=== PATIENT | female | born 1975 | race African-American/Black ===

== ENCOUNTER → 2017-01-18 | Outpatient (CLI) | payer BC | LOC: RAD 07:49 | DX: E66.01 Morbid (severe) obesity due to excess calories (principal); Z98.84 Bariatric surgery status ==

== ENCOUNTER → 2017-07-05 | Outpatient (CLI) | payer BC ==
[~2017-07-05] MED LIST: HYDROCHLOROTHIA25 M2 PO; HYDROCODONE-AP1 EAC6 PO; ONDANSETRON HCL4 M2 PO
== END ==
LOC: ULTRA 10:01
DX: R10.13 Epigastric pain (principal); Z98.84 Bariatric surgery status

== ENCOUNTER 2017-07-07 12:27 | Emergency (ER) | payer BC ==
[~2017-07-07] VITALS: Ht 152.4 cm; Wt 83.9 kg
[2017-07-07 13:06] LABS: HEMATOCRIT 36.8 % (37.0-47.0); HEMOGLOBIN 12.2 gm/dL (12.0-15.0); MCH 28.6 pg (26.0-34.0); MCV 86.7 fL (80.0-100.0); PLATELET COUNT 334 thou/uL (150-400); RBC 4.24 mil/uL (4.20-5.00); RDW 14.5 % (10.5-14.5); WBC 3.7 thou/uL (4.0-11.0)
[2017-07-07 13:17] LABS: CALCIUM 8.8 mg/dL (8.5-10.1); POTASSIUM 4.1 mmol/L (3.5-5.1)
[2017-07-07 13:22] LABS: ALBUMIN 3.7 g/dL (3.4-5.0); TOTAL BILIRUBIN 0.6 mg/dL (<0.1-1.0); TOTAL PROTEIN 7.8 g/dL (6.4-8.2)
[2017-07-07 13:34] LABS: ABSOLUTE NEUTROPHILS 1.4 thou/uL (1.4-8.2)
[2017-07-07] MEDS ORDERED: ONDANSETRON HCL4 M2 PO (14:26)
[2017-07-07] MEDS ORDERED: HYDROCODONE-AP1 EAC6 PO (14:26)
[2017-07-07 15:19] VITALS: BP 105/76
[2017-07-21] MEDS ORDERED: HYDROCHLOROTHIA25 M2 PO (17:30)
[2017-07-22] MEDS ORDERED: HYDROCODONE-AP1 EAC6 PO (12:34)
== END 2017-07-07 15:20 | disposition home or self-care (01) ==
LOC: ER 12:27
PROVIDERS: Physician Assistant
DX: R10.11 Right upper quadrant pain (principal); R11.2 Nausea with vomiting, unspecified

== ENCOUNTER → 2017-07-08 | Outpatient (CLI) | payer BC, OTHER | LOC: NUC 11:07 | DX: R10.9 Unspecified abdominal pain (principal) ==

== ENCOUNTER 2017-07-21 11:27 | Observation (INO) | payer BC, OTHER ==
[~2017-07-21] VITALS: Ht 152.4 cm; Wt 87.5 kg
--- NOTE | ~2017-07-21 | S ---
[facility] [place] [address] SURGICAL PATH RPT PROCEDURE Name: ASHLYN LEWIS Room #: 432-P [facility] Tiara Hernandez#: [id number] Admission: 07/21/17 Date of : 77 Discharge: 07/22/17 Report #: [id number] Path Case #: [id number] PATHOLOGY REPORT COLLECTION DATE: 07/22/2017 RECEIVED DATE: 07/22/2017 SUBMITTING PHYS: Dr. Gurvinder Arana OTHER PHYS: Dr. Dana Rose SPECIMEN(S) RECEIVED: A.Gallbladder * * * * * * * * * * * * FINAL DIAGNOSIS: Gallbladder, cholecystectomy: - Mild chronic cholecystitis. (IUV:mgr; 07/23/2017) PATHOLOGIST: Sofia Salmeron M.D. REPORT ELECTRONICALLY SIGNED BY: Sofia Salmeron M.D. DATE/TIME: 07/23/2017 15:06 * * * * * * * * * * * * GROSS PATHOLOGY: Received in formalin labeled "Ashlyn Lewis gallbladder," is a 6.5 x 2.6 x 0.4 cm, previously opened gallbladder with yellow-green serosal surfaces. Opening the gallbladder reveals green-brown velvety mucosa and an average wall thickness of 0.1 cm. Calculi are not present (the container is also searched and no calculi are present within the container) and no masses are noted grossly. Sub Plant Manager sections from the body and fundus are submitted along with the proximal margin in cassette A1. ([facility]; 07/22/2017) CLINICAL HISTORY: Biliary colic. INITIAL CPT CODE(S): A; 70211 Professional services performed by [facility] at [facility] [address], [place] [address] Technical services performed by [facility] at [address] [place] [id number]. [facility] [address] [place] [address] SURGICAL PATH RPT PROCEDURE Name: DEBBIEFAWNJoceline Sandeep Room #: 432-P DANDRE Hernandez#: [id number] Admission: 07/21/17 Date of : 77 Discharge: 07/22/17 Report #: [id number] Path Case #: [id number] [facility] [address] [address] PHONE: [phone] DIRECTOR: Edgar Bacon M.D. * * * END OF REPORT * * *
--- NOTE | ~2017-07-21 | O ---
[facility] [place] [address] OPERATIVE REPORT Name: JULIA LEWIS [id number] Admission: 07/21/17 Attend Phys: Gurvinder Arana MD, F Discharge: 07/22/17 Date of : 77 Report #: [id number] THIS REPORT FOR: //name// CC: Dana Arana DATE OF SERVICE: 07/22/2017 SURGEON: Gurvinder Arana MD KILN FIREMAN: Eendelia Summers NP PREOPERATIVE DIAGNOSES: 1. Biliary colic. 2. Obesity. 3. History of laparoscopic Dewayne-en-Y gastric bypass and repair of internal hernia. POSTOPERATIVE DIAGNOSES: 1. Biliary colic. 2. Obesity. 3. History of laparoscopic Dewayne-en-Y gastric bypass and repair of internal hernia. PROCEDURE: Laparoscopic cholecystectomy with intraoperative cholangiogram. ANESTHESIA: General endotracheal anesthesia and local anesthetic. ESTIMATED BLOOD LOSS: 5 mL. SPECIMEN: Gallbladder. COMPLICATIONS: None appreciated. INDICATIONS FOR PROCEDURE: This is a 41-year-old female patient known to me from a previous internal hernia repair. She has a history of Dewayne-en-Y gastric bypass in 2010. She has had difficulty with postprandial epigastric abdominal pain and was worked up with CT of the abdomen and pelvis, which showed no acute findings. She then underwent an upper endoscopy procedure, which was also essentially normal. PIPIDA scan revealed 95% ejection fraction; however, the patient had significant and exact reproduction of her symptoms with administration of the cholecystokinin. The patient presents now for laparoscopic cholecystectomy with cholangiogram. OPERATIVE FINDINGS: Upon entrance into the abdominal cavity, the patient's liver, gastric remnant, small bowel and colon in the surrounding area appeared [facility] [address] [place] [address] OPERATIVE REPORT Name: JULIA LEWIS Room #: 432-P [facility] Tiara AlexandraAlexandra#: [id number] Admission: 07/21/17 Attend Phys: Gurvinder Arana MD, F Discharge: 07/22/17 Date of : 77 Report #: [id number] otherwise normal. The gallbladder itself appeared to be chronically inflamed without an acute inflammatory process. The critical view consisting of cystic artery, cystic duct and lower edge of the gallbladder forming a window through which the liver was visible was seen prior to clipping the cystic duct for cholangiogram. The cholangiogram was normal without filling defects. Contrast flowed freely into the duodenal sweep. The biliary radicles and common bile duct diameter appeared normal. After removal of the gallbladder from the abdominal cavity, 3 clips remained on the cystic duct stump. The gallbladder was opened on the back table. No gallstones were seen within the gallbladder. At the conclusion of the operation, sponge, needle and instrument counts were correct. No other significant intra-abdominal pathology was seen and there was no evidence for iatrogenic injury. DESCRIPTION OF PROCEDURE IN DETAIL: After the risks, benefits and expectations of the operation were discussed in detail with the patient, informed consent was obtained. The patient was identified in the preoperative holding area. She was given IV antibiotics as documented in the chart in line with SCIP metrics. The patient was then taken to the operating room and she was placed in the supine position. SCDs were placed on the patient's bilateral lower extremities and pneumatic compression was initiated. The patient was then given IV sedation and she was intubated without incident. A time-out was performed to identify the correct patient, procedure after prepping and draping the patient's abdomen in the standard sterile fashion. Local anesthetic was infiltrated into the skin and subcutaneous tissue in the right subcostal area where a small transverse incision was made. A 5 mm Visiport was placed intraperitoneally with a 0-degree angled laparoscope. Pneumoperitoneum was achieved with insufflation of carbon dioxide to 15 mmHg. A 30-degree angled laparoscope was then inserted. A supraumbilical 10 mm port was then placed under direct visualization after local anesthetic was infiltrated into the skin and subcutaneous tissue and an appropriately sized incision was made. After placement of the port, a 10 mm 30-degree angled laparoscope was inserted. The patient was placed in reverse Trendelenburg position and rotated to her left. A subxiphoid 5-mm and right lateral subcostal 5 mm port were each placed under direct visualization after local anesthetic was infiltrated into the skin and subcutaneous tissue and appropriately sized incisions were made. Operative findings are as noted above. The dome of the gallbladder was retracted in a cephalad direction. The gallbladder peritoneum was then scored medially and laterally with the ultrasonic dissector. Dissection was then carried out around the cystic artery and cystic duct to identify both structures as the only two structures entering the gallbladder. A clip was placed on the cystic duct at its junction with the neck of the gallbladder. A ductotomy was created. A cholangiocatheter was inserted and cholangiogram performed with findings as noted above. The cholangiocatheter was then removed and the cystic duct was triply clipped distal [facility] [address] [place] [address] OPERATIVE REPORT Name: JULIA LEWIS Room #: 432-P [facility]#: [id number] Admission: 07/21/17 Attend Phys: Gurvinder Arana MD, F Discharge: 07/22/17 Date of : 77 Report #: [id number] to the ductotomy. The duct was divided with the ultrasonic dissector with a good seal at the ductotomy site. The cystic artery was divided with the ultrasonic dissector with good hemostasis as well. The gallbladder was then dissected out of the liver bed without entrance into the gallbladder or liver bed. The gallbladder was detached from the liver bed, placed in an Endobag, and removed from the periumbilical port site. An 0 PDS suture was then placed with the Nathan-Kiesha laparoscopic fascial closure device. The suture was tagged and the port was replaced. The abdominal cavity was then reentered and the liver bed was examined for hemostasis. No other significant intra-abdominal pathology was seen. The 10 mm port was removed and the suture was tied under direct visualization to ensure no incorporation of intra-abdominal content. The abdominal cavity was then desufflated and the ports were removed. Interrupted subcuticular 4-0 Monocryl sutures and Dermabond was used to close the skin incisions. The patient tolerated the procedure well. She was awakened, extubated, and taken to recovery room in stable condition with no apparent intraoperative complications. <ELECTRONICALLY SIGNED> By: Gurvinder Arana MD, FACS 07/26/17 103 [id number] 10 Gurvinder Arana MD, FACS /nt
[~2017-07-21 11:27] MED LIST changes: -HYDROCHLOROTHIA25 M2 PO
[2017-07-21 11:38] VITALS: BP 135/89
[2017-07-21 12:15] LABS: ABSOLUTE NEUTROPHILS 3.6 thou/uL (1.4-8.2); BASOPHILS 0.8 % (0.0-2.0); EOSINOPHILS 1.7 % (0.0-3.0); HEMATOCRIT 37.2 % (37.0-47.0); HEMOGLOBIN 12.4 gm/dL (12.0-15.0); LYMPHOCYTES 35.1 % (24.0-44.0); MCH 29.1 pg (26.0-34.0); MCHC 33.4 g/dL (28.0-37.0); MCV 87.2 fL (80.0-100.0); MONOCYTES 10.2 % (1.0-8.0); PLATELET COUNT 218 thou/uL (150-400); POLYS 52.2 % (36.0-66.0); RBC 4.27 mil/uL (4.20-5.00); WBC 6.9 thou/uL (4.0-11.0)
[2017-07-21 12:16] LABS: URINE BILIRUBIN NEGATIVE (Negative); URINE BLOOD NEGATIVE (Negative); URINE CLARITY CLEAR; URINE COLOR YELLOW; URINE GLUCOSE-RANDOM* NEGATIVE (Negative); URINE KETONES NEGATIVE (Negative); URINE LEUKOCYTES NEGATIVE (Negative); URINE NITRITE NEGATIVE (Negative); URINE PROTEIN (DIPSTICK) NEGATIVE (Negative); URINE UROBILINOGEN 0.2 E.U./dl (0.2-1.0)
[2017-07-21 12:21] LABS: ANION GAP 8 mmol/L (7-16); BUN 12 mg/dL (7-18); CALCIUM 8.9 mg/dL (8.5-10.1); CHLORIDE 103 mmol/L (98-107); CO2 27 mmol/L (21-32); CREATININE 0.9 mg/dL (0.6-1.0); GLUCOSE 116 mg/dL (74-106); POTASSIUM 3.4 mmol/L (3.5-5.1); SODIUM 138 mmol/L (136-145)
[2017-07-21 12:27] LABS: ALBUMIN 3.7 g/dL (3.4-5.0); DIRECT BILIRUBIN < 0.1 mg/dL (<0.1-0.3); LIPASE 135 U/L (73-393); SGOT 20 U/L (15-37); SGPT 33 U/L (30-65); TOTAL BILIRUBIN 0.5 mg/dL (<0.1-1.0); TOTAL PROTEIN 7.7 g/dL (6.4-8.2)
[2017-07-21 13:52] VITALS: BP 130/92
[2017-07-21 14:43] VITALS: BP 131/92
[2017-07-21] MEDS ORDERED: HYDROCHLOROTHIA25 M2 PO ×2 (17:30)
[2017-07-21 20:00] VITALS: BP 118/78
[2017-07-22 04:05] VITALS: BP 117/78
[2017-07-22 07:04] LABS: CALCIUM 8.9 mg/dL (8.5-10.1); CREATININE 0.9 mg/dL (0.6-1.0); MAGNESIUM 1.9 mg/dL (1.8-2.4); POTASSIUM 3.9 mmol/L (3.5-5.1)
[2017-07-22 09:18] VITALS: BP 102/65
[2017-07-22] MEDS ORDERED: HYDROCODONE-AP1 EAC6 PO ×2 (12:34)
[2017-07-22 13:02] VITALS: BP 102/65
== END 2017-07-22 14:45 | disposition home or self-care (01) ==
LOC: ER 11:27 → EROBS 13:35 → 4E 14:40
PROVIDERS: Emergency Medicine; Surgery
DX: K81.1 Chronic cholecystitis (principal); K91.86 Retained cholelithiasis following cholecystectomy; J45.909 Unspecified asthma, uncomplicated; I10 Essential (primary) hypertension; E66.9 Obesity, unspecified; Z68.37 Body mass index [BMI] 37.0-37.9, adult; Z98.84 Bariatric surgery status
CPT/HCPCS: 50010; 50101; 50249; 50411; 50555; 50558; 50962; 51975; 52265; 53307; 54022; 54118; 55245; 55317; 56462; 56525; 56526; 62110; 62900; 70005

== ENCOUNTER 2017-07-22 16:25 | Emergency (ER) | payer BC, OTHER ==
[~2017-07-22] VITALS: Ht 152.4 cm; Wt 81.7 kg
[~2017-07-22 16:25] MED LIST changes: +HYDROCHLOROTHIA25 M2 PO
[2017-07-22 17:26] VITALS: BP 136/91
== END 2017-07-22 17:27 | disposition home or self-care (01) ==
LOC: ER 16:25
DX: K91.840 Postprocedural hemorrhage of a digestive system organ or structure following a digestive system procedure (principal)